=== PATIENT | male | born 1945 | race Caucasian/White ===

== ENCOUNTER 2016-06-12 19:03 | Emergency (ER) | payer MEDICARE ==
[~2016-06-12] VITALS: Ht 188 cm; Wt 90.4 kg
[2016-06-12 19:05] VITALS: BP 148/91
[2016-06-12] MEDS ORDERED: LIDOCAINE 1%, 20ML ONE (19:39)
[2016-06-12] MEDS ORDERED: DIPH,PERTUSS(ACELL),TET VAC/PF 0.5 ML IM-VACC ONE ×2 (19:40→20:00)
[2016-06-12] MEDS ORDERED: LIDOCAINE 1%, 20ML SQ ONE (20:00)
[2016-06-12] MEDS ORDERED: BACITRACIN ZINC OINT 500U/GM, 0.9 GM ONE (20:20)
== END 2016-06-12 20:41 | disposition home or self-care (01) ==
LOC: ED 20:20
DX: S01.01XA Laceration without foreign body of scalp, initial encounter (principal); W01.0XXA Fall on same level from slipping, tripping and stumbling without subsequent striking against object, initial encounter; Y93.89 Activity, other specified; Y92.009 Unspecified place in unspecified non-institutional (private) residence as the place of occurrence of the external cause; Y99.9 Unspecified external cause status
CPT/HCPCS: 12002; 90471; 90715

== ENCOUNTER 2016-06-23 11:10 | Emergency (ER) | payer MEDICARE ==
[~2016-06-23] VITALS: Ht 188 cm; Wt 93.0 kg
[2016-06-23 11:12] VITALS: BP 168/81
== END 2016-06-23 11:42 | disposition home or self-care (01) ==
LOC: ED 11:36
DX: S01.01XD Laceration without foreign body of scalp, subsequent encounter (principal); X58.XXXD Exposure to other specified factors, subsequent encounter; Y92.89 Other specified places as the place of occurrence of the external cause; Y99.9 Unspecified external cause status
CPT/HCPCS: 99281